=== PATIENT | female | born 2000 | race Caucasian/White ===

== ENCOUNTER 2025-02-18 07:18 | Outpatient (RCR) | payer OTHER, SELFPAY ==
[2025-02-16 09:07] LABS: Hematocrit 32.6 % (37.0-47.0); Hemoglobin 10.9 g/dL (12.0-15.0)
[2025-02-16 09:15] LABS: Glucose 1 Hour PP 50gm Dose 149 mg/dL
[2025-02-16 09:57] LABS: HIV 1/2 Ab P24 Ag Result Negative (Negative)
[2025-02-18] MEDS: RHO(D) IMMUNE GLOBULIN 300 MCG/2 ML SYRINGE IM (07:36)
== END 2025-05-17 23:59 | disposition home or self-care (01) ==
LOC: ANHLAB 07:18
PROVIDERS: Visit Provider Advanced Practice Midwife
DX: Z11.3 Encounter for screening for infections with a predominantly sexual mode of transmission (principal); Z11.4 Encounter for screening for human immunodeficiency virus [HIV]; Z29.13 Encounter for prophylactic Rho(D) immune globulin; O36.0130 Maternal care for anti-D [Rh] antibodies, third trimester, not applicable or unspecified; Z3A.00 Weeks of gestation of pregnancy not specified
CPT/HCPCS: 36415; 82947; 85014; 85018; 85461; 86703; 86850; 86900; 86901; 90384; 96372; G0432; J2790

== ENCOUNTER 2025-04-26 10:11 | Outpatient (CLI) | payer OTHER, SELFPAY ==
--- NOTE | ~2025-04-26 | US_ITS ---
EXAM/PROCEDURE: US OB BPP wo non-stress HISTORY: GDM COMPARISON: None available. TECHNIQUE: Biophysical profile scored exam performed. EGA by dates 37 weeks 2 days EDC by dates May 15, 2025 FINDINGS: A single viable intrauterine gestation is present with heart rate of 148 bpm Presentation: Vertex Placenta: Fundal, with no evidence of placenta previa or abruption seen. ELVIA: 11.03 cm x 4 quadrant technique Biophysical profile scores 8/8. IMPRESSION: Single viable intrauterine gestation with biophysical profile score of 8/8 and heart rate of 148 bpm Reviewed, dictated and finalized at location A. NTION REPRESENTATIVE
[2025-04-26 10:45] VITALS: BP 118/73; PULSE 84
[2025-04-26 10:46] LABS: Hematocrit 34.5 % (37.0-47.0); Hemoglobin 11.3 g/dL (12.0-15.0); Immature Granulocyte Percent A 1.0 % (0-0.5); Lymphocytes Absolute Auto 1.67 K/mm3 (0.9-3.2); Mean Corpuscular HGB Conc 32.8 g/dl (32-36); Mean Corpuscular Hemoglobin 29.3 pg (26-34); Mean Corpuscular Volume 89.4 fl (80-100); Nucleated Red Blood Cells Absolute Auto 0.000 K/mm3 (0.0-0.012); Nucleated Red Blood Cells Perc 0.0 % (0.0-0.2); Platelet Count Result 193 k/mm3 (150-375); Red Blood Count 3.86 M/mm3 (4.2-5.4); White Blood Count 11.9 K/mm3 (4.5-10.0)
[2025-04-26 10:49] LABS: Add Urine Microscopic? YES; Appearance Urine Clear (Clear); Glucose Urine UA Negative (Negative); Leukocyte Esterase Ur 3+ LEU/UL (Negative); Nitrate Urine Negative (Negative); Non Pathogenic Casts 0-2; Specific Grav Ur 1.007 (1.001-1.035)
[2025-04-26 11:00] VITALS: BP 114/76; PULSE 88
[2025-04-26 11:05] LABS: Alanine Aminotransferase 11 U/L (6-35); Albumin Level 3.8 g/dL (3.5-5.1); Alkaline Phosphatase 145 U/L (38-126); Anion Gap 6 mmol/L (4-12); Aspartate Amino Transferase 19 U/L (14-36); Bilirubin,Total 0.4 mg/dL (0.2-1.3); Blood Urea Nitrogen 10 mg/dL (7-17); Calcium 8.8 mg/dL (8.4-10.2); Carbon Dioxide 21 mmol/L (22-30); Chloride 106 mmol/L (98-107); Estimated Glomerular Filt Rate > 60; Glucose 88 mg/dL (65-110); Potassium 4.1 mmol/L (3.4-5.0); Sodium 133 mmol/L (137-145); Total Protein 6.9 g/dL (6.3-8.2); Uric Acid 5.4 mg/dL (2.5-7.5)
[2025-04-26 11:07] LABS: Total Protein Urine Random 10 mg/dL; Ur Ttl Prot Creatinine Ratio 0.25 mg/mg (0-0.20)
[2025-04-26 11:15] VITALS: BP 114/68; PULSE 89
[2025-04-26 11:31] VITALS: BP 118/73; PULSE 78
== END 2025-04-26 12:10 | disposition home or self-care (01) ==
LOC: ANHOBOP 10:16 → ANHOBPP 10:16
PROVIDERS: Visit Provider Advanced Practice Midwife
DX: O13.9 Gestational [pregnancy-induced] hypertension without significant proteinuria, unspecified trimester (principal); Z3A.00 Weeks of gestation of pregnancy not specified
CPT/HCPCS: 36415; 59025; 76819; 80053; 81001; 82570; 84156; 84550; 85025; 87086; 99199

== ENCOUNTER 2025-05-08 05:03 | Inpatient (IN) | payer OTHER, SELFPAY ==
[2025-05-08] VITALS (270 sets, daily range): BP systolic 105–150; BP diastolic 51–102; PULSE 67–132; TEMP 36.2–38; O2SAT 84–100; BMI 24.2
--- NOTE | 2025-05-08 05:03 | LDADM ---
This patient, Elvira Hou, was admitted to Labor/Delivery/Recovery 105 on 05/08/25 at 05:03. Plans for labor, pain management and were discussed with patient. Patient/family oriented to hospital policies and general routines including ID bracelet, bed and alarms, visiting hours, pain management, procedures, bathroom and other care routines, personal items, smoking policy, room service/diet and guest tray routines, infant security routines, and visiting hours. Patient/Family are encouraged to report perceived risks to care and to ask questions if they do not understand what they are told or what they should do. See OBIX for further documentation.
[2025-05-08 06:10] LABS: Hematocrit 36.9 % (37.0-47.0); Hemoglobin 12.1 g/dL (12.0-15.0); Immature Granulocyte Percent A 1.3 % (0-0.5); Lymphocytes Absolute Auto 2.40 K/mm3 (0.9-3.2); Mean Corpuscular HGB Conc 32.8 g/dl (32-36); Mean Corpuscular Hemoglobin 29.2 pg (26-34); Mean Corpuscular Volume 89.1 fl (80-100); Nucleated Red Blood Cells Absolute Auto 0.000 K/mm3 (0.0-0.012); Nucleated Red Blood Cells Perc 0.0 % (0.0-0.2); Platelet Count Result 206 k/mm3 (150-375); Red Blood Count 4.14 M/mm3 (4.2-5.4); White Blood Count 14.8 K/mm3 (4.5-10.0)
[2025-05-08] MEDS: LACTATED RINGERS 1,000 ML 125 ML IV CONT ×3 (06:46→17:15)
[2025-05-08] MEDS: OXYTOCIN 30 UNITS/NS 500 ML 30 UNITS/500 ML BAG IV CONT (06:46)
[2025-05-08 06:55] LABS: Syphilis IgG/IgM Antibody Non-Reactive (Nonreactive)
--- NOTE | 2025-05-08 07:26 | WPDOBADMIT ---
Obstetrics - Admit Note Admission Note: record reviewed. No pertinent additions to the history and/or any subsequent changes in the physical findings that are not consistent with the expected course of the were found. Additions to the history and/or subsequent changes in the physical findings follow. Admit for SGA, GDMA-1, 2 vessel cord, velamentous cord insertion
--- NOTE | 2025-05-08 07:57 | PM.OBPNLAB ---
Pain Control Date/time seen: 05/08/25 07:57 Comments: recurrent variables noted after AROM, IUPC placed without difficulty
[2025-05-08] MEDS: SODIUM CHLORIDE 0.9% IV 300 ML 600 ML I-UTERINE (08:00)
--- NOTE | 2025-05-08 10:56 | P.PNAN_ITS ---
Anes - Initial Pre Proc Eval Date/Time: 05/08/25 10:56 Surgeon: Theo Velazquez MD Pre Op Diagnosis: IOL Patient Data Age: 25 Gender: F Height: 1.63 m Weight: 64 kg Last Vital Signs Temp 36.6 C 05/08/25 08:30 Pulse 81 05/08/25 10:55 BP 128/64 05/08/25 10:55 Pulse Ox 100 05/08/25 10:52 O2 Del Method Room Air 05/08/25 06:40 Allergies Allergy/AdvReac Type Severity Reaction Status Date / Time No Known Allergies Allergy Verified 05/08/25 06:12 Home Medications ?Medication ?Instructions ?Recorded ?Confirmed ?Type vit no.95-ferrous 1 tablet PO DAILY 04/19/25 05/08/25 History fumarate 28 mg-folic acid 800 mcg tablet () Laboratory Tests 05/08/25 05/08/25 05:25 06:18 WBC 14.8 H K/mm3 (4.5-10.0) RBC 4.14 L M/mm3 (4.2-5.4) Hgb 12.1 g/dL (12.0-15.0) Hct 36.9 L % (37.0-47.0) MCV 89.1 fl (80-100) MCH 29.2 pg (26-34) MCHC 32.8 g/dl (32-36) RDW 12.7 % (11.5-14.5) Plt Count 206 k/mm3 (150-375) MPV 12.9 H fl (7.4-10.4) Immature Gran % (Auto) 1.3 H % (0-0.5) Neut % (Auto) 74.5 H % (45.5-73.1) Lymph % (Auto) 16.2 L % (18.3-44.2) Frontier % (Auto) 5.5 % (2.6-8.5) Eos % (Auto) 2.0 % (0-4.4) Baso % (Auto) 0.5 % (0.2-1.2) Lymph # (Auto) 2.40 K/mm3 (0.9-3.2) Frontier # (Auto) 0.8 H K/mm3 (0.1-0.6) Eos # (Auto) 0.3 K/mm3 (0-0.3) Baso # (Auto) 0.1 K/mm3 (0.0-0.1) Abs Immat Gran (auto) 0.19 H K/mm3 (0.00-0.031) Absolute Neuts (auto) 11.1 H K/mm3 (1.3-6.7) Absolute Nucleated RBC 0.000 K/mm3 (0.0-0.012) Nucleated RBC % 0.0 % (0.0-0.2) POC Capillary Glucose 92 mg/dl (65-105) Syphilis IgG/IgM Ab Non-reactive (Nonreactive) Blood Type O Negative Antibody Screen Positive Antibody Identification Passive Due to RH Imm Glob Antigen Identification Not Reportable MARYAM, IgG Interpret Not Performed MARYAM, Poly Interpret Negative MARYAM, Complement Interp Not Performed Patient hx anesthesia problems: none Family hx anesthesia problems: none Results Review: All pre-operative results and documents have been reviewed as part of the pre- operative evaluation. [facility] Family History Family History Other No pertinent family history Social History Social History Smoking status: Never smoker Substance use: never Lack of Transportation: No Lack of Food: Never True Current Housing: I Have Housing Concerned About Future Housing: No Difficulty Paying Gas/Electric Bills: No Difficulty Paying for Meds: No Currently Unemployed: No Education: Associate Degree Difficulty w/ Childcare or Family Care: No Spiritual care concerns: No Anes - Eval Final PreProcedure Day of Procedure 05/08/25 10:56 Patient weight: normal Heart: regular rate and rhythm Lungs: clear to auscultation Neurological: alert and oriented Last oral intake: >/= 8 hours ASA classification: II Emergent: no Anesthetic plan: proceed Anesthesia type and monitoring: regional epidural and standard monitoring Results Review: All pre-operative results and documents have been reviewed as part of the pre- operative evaluation. Informed Consent: The patient's anesthetic plan and its attendant risks and benefits were discussed with the patient/family/POA. Questions were solicited and answers provided to the satisfaction of the patient/family/POA.
--- NOTE | 2025-05-08 17:55 | P.PNOB_ITS ---
Pain Control Date/time seen: 05/08/25 17:55 Comments: category 2, reviewed strip with dr. miguel luan /-2 proceed with IOL
--- NOTE | 2025-05-08 17:55 | PM.OBPNLAB ---
Pain Control Date/time seen: 05/08/25 17:55 Comments: category 2, reviewed strip with dr. miguel luna /-2 proceed with IOL
[2025-05-08] MEDS: AMPICILLIN SODIUM 2 GM in SODIUM CHLORIDE 0.9% IV 100 ML 200 ML IVPB (20:14)
[2025-05-08] MEDS: ACETAMINOPHEN 500 MG TABLET 1000 MG PO (20:15)
[2025-05-08] MEDS: SODIUM CHLORIDE 0.9% IV 1,000 ML 150 ML I-UTERINE (21:33)
--- NOTE | 2025-05-08 23:53 | PM.OBPRVD ---
OB - Vaginal Delivery Note Procedure Delivery date: 05/08/25 Events: Intrauterine Growth Restriction (IUGR) and Other (2 vessel cord, velamentous insertion) Intrapartal Events: Decelerations (variables) Induction method: AROM and Per Pitocin Protocol Delivery monitor: External FHT and Internal Uterine Route of delivery: Episiotomy description: None Laceration Description: None Specimen: Yes Quantitative Blood Loss (ml): 125 Anesthesia type: Epidural Disposition: Floor Baby Date of : 05/08/25 Time of : 23:40 Gestational Age by Date: 39 gender: Male Weight (pounds): 5 Weight (ounces): 8 presentation: vertex position: Left Occiput Anterior Placenta delivery description: Manual Removal and Uterine Exploration Cord Vessel Description: 2 Vessels, Nuchal Cord (x3) and Clamped/Cut (on perineum) score one minute: 5 score five minutes: 9 Narrative: can x 3 tight, cut and baby delivered quickly, to warmer, cord without any manipulation broke off, manual removal, bedside us done and thin endometrial stripe observed. cord very thin, velamentous insertion visible and sent to pathology
[2025-05-09] VITALS (28 sets, daily range): BP systolic 107–140; BP diastolic 56–91; PULSE 82–108; RESP 16–18; TEMP 36.7–37.6; O2SAT 97–100
[2025-05-09] MEDS: OXYTOCIN 30 UNITS/NS 500 ML 30 UNITS/500 ML BAG 125 UNITS IV CONT (00:06)
--- NOTE | 2025-05-09 00:43 | S_PTH ---
PATIENT: Elvira Hou LOC: [facility] U#:[id number] AGE/SX: 25/F ROOM: 284 RE05/08/[address]: Larry Norton MD : [id number] BED: 00 DIS: 05/10/2025 SPEC #: [id number] RECD: 05/13/25 08:12 STATUS: CRISTIANE REQ #: [id number] MORRIS: 05/09/25 00:[address]: Nan Wallace DEPT: [facility] Surgical RECD BY: Jo Brantley ENTERED: 05/13/25 08:12 SP TYPE: Surgical OTHR DR: Theo Velazquez MD AGENCY SERVICE REPRESENTATIVE PHYSICIAN Tissues: A - Placenta Procedures: Hematoxylin and Eosin Stain Gross and Microscopic Level 5
--- NOTE | 2025-05-09 02:12 | OBPPTRN ---
Patient transferred to post room #284 via wheelchair. Support person present. Oriented to unit, room, information board, rooming in, admission packet and security measures. Patient verbalizes understanding.
[2025-05-09] MEDS: IBUPROFEN 600 MG TABLET PO ×4 (02:43→21:23)
[2025-05-09 05:28] LABS: Hematocrit 34.4 % (37.0-47.0); Hemoglobin 11.0 g/dL (12.0-15.0)
[2025-05-09] MEDS: ACETAMINOPHEN 325 MG TABLET 650 MG PO ×3 (09:11→21:23)
[2025-05-09] MEDS: MULTIVIT/MIN/PREN/FOL AC/IRON TABLET 1 TAB PO (09:12)
[2025-05-09] MEDS: DOCUSATE SODIUM 100 MG CAPSULE PO (09:12)
--- NOTE | 2025-05-09 09:50 | P.PNOB_ITS ---
OB - PN: Subj Subjective Date/time seen: 05/09/25 09:50 Interval history: PPD#1 s/p Doing well, pain controlled Tolerating general diet Voiding without issue OB - PN: Obj Data Labs 05/09/25 05:13 Labs: Laboratory Results - last 24 hr 05/08/25 05/08/25 05/08/25 11:16 15:24 19:22 Hgb Hct POC Capillary Glucose 101 76 88 05/08/25 05/09/25 22:21 05:13 Hgb 11.0 L Hct 34.4 L POC Capillary Glucose 75 OB - PN A/P Assessment and Plan (1) (spontaneous vaginal delivery): Code(s): O80 - Encounter for full-term uncomplicated delivery Status: Acute Plan day: 1 Plan: routine care Time Spent With Patient Time: Total time spent is greater than 50% in coordination of care (as documented) at patient's floor/unit and/or counseling patient: Review of Systems 2 Review of Systems: All systems reviewed & are unremarkable except as noted in HPI and below Exam 2 Const: General: comfortable and no acute distress O rientation/consciousness: patient oriented x3 Resp: Effort & Inspection: normal respiratory effort
--- NOTE | 2025-05-10 00:54 | PM.OBDSVD ---
DS: Admitting Diagnosis Discharge Date 05/10/25 Admitting Diagnosis induction of labor DS: Discharge Diagnosis Discharge Diagnosis (1) (spontaneous vaginal delivery): Code(s): O80 - Encounter for full-term uncomplicated delivery Status: Acute OB - DS: Summary OB Procedures : None OB Procedures Intrapartum: Spontaneous Vag Delivery OB Procedures: : None Peripartum Data Laceration Description: None Episiotomy description: None Time Spent with Patient Time attestation: Total time spent providing and/or coordinating discharge services: DS: Data Data Completed and Pending Pending studies at discharge: Pending at discharge 05/09/25 00:43 Surgical [PTH] Routine Labs on day of discharge: Labs from last 24 hours 05/09/25 05:13 Hgb 11.0 L Hct 34.4 L Discharge Plan Discharge Attending physician on discharge: Larry Norton Consulting providers: Nan Wallace Discharging Clinician: Larry Norton Patient Disposition: Home Activity: may shower, as tolerated and pelvic rest Diet: as tolerated Patient Instructions: Antibiotic Form Patient Language: Danish Stand Alone Forms: General Discharge Information Follow-up/Referrals: Nan Wallace CNM [Certified Nurse Set Up Mechanic [employer], [employer]] Discharge Medications: New ibuprofen 600 mg Tablet 600 mg PO Q6H PRN (Reason: Cramping) Qty: 30 0RF Continued PNV no.95-ferrous fumarate-FA [] 28 mg iron- 800 mcg tablet 1 tablet PO DAILY Date of admission: 05/08/25 05:03 Primary Care Provider: PHYSICIAN,STONE POLISHER MACHINE Admitting Provider: Theo Velazquez Attending physician on admission: Theo Velazquez Condition: Stable
[2025-05-10] MEDS: IBUPROFEN 600 MG TABLET PO (04:39)
[2025-05-10 08:45] VITALS: BP 124/78; PULSE 89; RESP 18; TEMP 36.9; O2SAT 100
--- NOTE | 2025-05-10 10:26 | P.PNOB_ITS ---
OB - PN: Subj Subjective Date/time seen: 05/10/25 10:26 Interval history: PPD#2 s/p Doing well, pain controlled Tolerating general diet Voiding without issue Ready for discharge home OB - PN: Obj Data Labs 05/09/25 05:13 OB - PN A/P Assessment and Plan (1) (spontaneous vaginal delivery): Code(s): O80 - Encounter for full-term uncomplicated delivery Status: Acute Plan day: 2 Plan: routine care and discharge home Time Spent With Patient Time: Total time spent is greater than 50% in coordination of care (as documented) at patient's floor/unit and/or counseling patient: Exam 2 Const: General: comfortable and no acute distress O rientation/consciousness: patient oriented x3 Resp: Effort & Inspection: normal respiratory effort
[2025-05-13 10:42] VITALS: BP 130/84; PULSE 98; RESP 16; TEMP 36.8; O2SAT 100
== END 2025-05-10 14:27 | disposition home or self-care (01) | DRG 807 ==
LOC: ANHOB2 05-10 13:25 → ANHLDR 05-14 09:35
PROVIDERS: Advanced Practice Midwife; Obstetrics & Gynecology; Admitting Provider Obstetrics & Gynecology; Visit Provider Obstetrics & Gynecology
DX: O36.5930 Maternal care for other known or suspected poor fetal growth, third trimester, not applicable or unspecified (principal); Z37.0 Single live birth; Z3A.37 37 weeks gestation of pregnancy; O24.420 Gestational diabetes mellitus in childbirth, diet controlled; O43.123 Velamentous insertion of umbilical cord, third trimester; O69.1XX0 Labor and delivery complicated by cord around neck, with compression, not applicable or unspecified; O76 Abnormality in fetal heart rate and rhythm complicating labor and delivery
CPT/HCPCS: 36415; 82948; 85014; 85018; 85025; 86593; 86850; 86880; 86900; 86901; 86902; 88307; A9270; J0290; J2590; J2795; J7030; J7120